=== PATIENT | female | born 1935 | race Caucasian/White ===

== ENCOUNTER 2018-04-25 13:50 | Emergency (ER) | payer OTHER, MEDICARE ==
[~2018-04-25] VITALS: Ht 167.6 cm; Wt 95.3 kg
[~2018-04-25 13:50] MED LIST: AGGRENOX 25 MG1 EACH PO; ASPIR 8181 MG PO; BYSTOLIC 5 MG5 M1 PO; CELEXA20 MG PO; COZAAR 50 MG TA50 M2 PO; FISH OIL 1,001000 M2 PO; HYDROCHLOROTHIA25 M2 PO; KEFLEX250 M1 PO; MACULAR VITAMI1 EACH PO; MICROZIDE12.5 MG PO; NORCO 5-325 TA1 EACH PO; NORVASC5 MG PO; PLAVIX 75 MG TA75 M1 PO; TAMSULOSIN HCL0.4 MG PO; ZOFRAN ODT4 MG PO; [UNRECOGNIZED DRUG - OTHER] PO
[2018-04-25 14:03] LABS: HEMATOCRIT 42.3 % (37.0-47.0); HEMOGLOBIN 14.1 gm/dL (12.0-15.0); MCH 29.8 pg (26.0-34.0); MCHC 33.4 g/dL (28.0-37.0); MCV 89.3 fL (80.0-100.0); RBC 4.74 mil/uL (4.20-5.00); RDW 14.3 % (10.5-14.5); WBC 8.9 thou/uL (4.0-11.0)
[2018-04-25 14:08] LABS: CALCIUM 10.5 mg/dL (8.5-10.1); CREATININE 0.8 mg/dL (0.6-1.0); POTASSIUM 4.3 mmol/L (3.5-5.1)
[2018-04-25 14:18] LABS: PROTIME 10.4 Seconds (9.3-11.4)
[2018-04-25 16:00] VITALS: BP 155/64
== END 2018-04-25 16:02 | disposition home or self-care (01) ==
LOC: ER 13:50
PROVIDERS: Physician Assistant
DX: S01.511A Laceration without foreign body of lip, initial encounter (principal); S01.81XA Laceration without foreign body of other part of head, initial encounter; Z86.73 Personal history of transient ischemic attack (TIA), and cerebral infarction without residual deficits; Z95.0 Presence of cardiac pacemaker; Z90.710 Acquired absence of both cervix and uterus; Z90.49 Acquired absence of other specified parts of digestive tract; W01.0XXA Fall on same level from slipping, tripping and stumbling without subsequent striking against object, initial encounter; Y93.89 Activity, other specified; Y92.89 Other specified places as the place of occurrence of the external cause; Y99.8 Other external cause status

== ENCOUNTER 2018-10-25 19:45 | Emergency (ER) | payer OTHER, MEDICARE ==
[~2018-10-25] VITALS: Ht 167.6 cm; Wt 86.2 kg
[2018-10-25 21:10] VITALS: BP 146/71
== END 2018-10-25 21:21 | disposition home or self-care (01) ==
LOC: ER 19:45 → EDBD 19:45 → ER 21:21
DX: S80.01XA Contusion of right knee, initial encounter (principal); S09.8XXA Other specified injuries of head, initial encounter; Z87.891 Personal history of nicotine dependence; Z90.710 Acquired absence of both cervix and uterus; Z90.49 Acquired absence of other specified parts of digestive tract; Z95.0 Presence of cardiac pacemaker; W18.39XA Other fall on same level, initial encounter; Y92.195 Garage of other specified residential institution as the place of occurrence of the external cause; Y93.89 Activity, other specified; Y99.8 Other external cause status

== ENCOUNTER → 2019-11-03 | Outpatient (CLI) | payer OTHER, MEDICARE | LOC: SJCVC 01:00 | PROVIDERS: ATTEND Internal Medicine | DX: Z45.018 Encounter for adjustment and management of other part of cardiac pacemaker (principal); R94.31 Abnormal electrocardiogram [ECG] [EKG]; I49.5 Sick sinus syndrome; I47.1 Supraventricular tachycardia; E78.5 Hyperlipidemia, unspecified; I10 Essential (primary) hypertension; G47.33 Obstructive sleep apnea (adult) (pediatric); E66.9 Obesity, unspecified; Z90.49 Acquired absence of other specified parts of digestive tract; Z79.899 Other long term (current) drug therapy; Z87.891 Personal history of nicotine dependence ==

== ENCOUNTER 2020-04-29 13:56 | Emergency (ER) | payer OTHER, MEDICARE ==
[~2020-04-29] VITALS: Ht 167.6 cm; Wt 102.1 kg
[2020-04-29 15:24] LABS: URINE BILIRUBIN NEGATIVE (Negative); URINE BLOOD 3+ (Negative); URINE CLARITY CLEAR; URINE COLOR YELLOW; URINE GLUCOSE-RANDOM* NEGATIVE (Negative); URINE KETONES NEGATIVE (Negative); URINE LEUKOCYTES-REFLEX 1+ (Negative); URINE NITRITE-REFLEX NEGATIVE (Negative); URINE PROTEIN (DIPSTICK) NEGATIVE (Negative); URINE SPECIFIC GRAVITY 1.025 (1.005-1.035); URINE UROBILINOGEN 0.2 E.U./dl (0.2-1.0)
[2020-04-29 15:37] LABS: ABSOLUTE NEUTROPHILS 5.1 thou/uL (1.4-8.2); BASOPHILS 0.6 % (0.0-2.0); EOSINOPHILS 0.6 % (0.0-3.0); HEMATOCRIT 40.9 % (37.0-47.0); HEMOGLOBIN 13.4 gm/dL (12.0-15.0); LYMPHOCYTES 21.2 % (24.0-44.0); MCH 29.2 pg (26.0-34.0); MCHC 32.7 g/dL (28.0-37.0); MCV 89.1 fL (80.0-100.0); MONOCYTES 9.3 % (1.0-8.0); PLATELET COUNT 174 thou/uL (150-400); POLYS 68.3 % (36.0-66.0); RBC 4.59 mil/uL (4.20-5.00); RDW 14.5 % (10.5-14.5); WBC 7.4 thou/uL (4.0-11.0)
[2020-04-29 15:49] LABS: CASTS None Seen /LPF (None Seen); CRYSTALS None Seen /LPF (None Seen); SQUAMOUS 0-3 Few /LPF (0-3); URINE RBC >20 Many /HPF (0-2); URINE WBC-REFLEX 6-15 Few /HPF (0-5)
[2020-04-29 15:50] LABS: BACTERIA-REFLEX 1-9 Few /HPF (None Seen)
[2020-04-29 15:53] LABS: ANION GAP 5 mmol/L (7-16); BUN 21 mg/dL (7-18); CALCIUM 10.4 mg/dL (8.5-10.1); CHLORIDE 106 mmol/L (98-107); CO2 30 mmol/L (21-32); GLUCOSE 102 mg/dL (74-106); POTASSIUM 4.5 mmol/L (3.5-5.1); SODIUM 141 mmol/L (136-145)
[2020-04-29 16:04] LABS: ALBUMIN 3.9 g/dL (3.4-5.0); LIPASE 161 U/L (73-393); SGOT 21 U/L (15-37); SGPT 25 U/L (30-65); TOTAL BILIRUBIN 0.6 mg/dL (0.2-1.0); TOTAL PROTEIN 6.7 g/dL (6.4-8.2); TROPONIN-I <0.06 ng/mL (<0.06)
[2020-04-29] MEDS ORDERED: NORCO 5-325 TA1 EAC2 PO (17:09)
[2020-04-29] MEDS ORDERED: ZOFRAN ODT4 MG PO (17:09)
[2020-04-29] MEDS ORDERED: SENNA-DOCUSATE1 EAC1 PO (17:09)
[2020-04-29] MEDS ORDERED: FLOMAX0.4 MG PO (17:09)
[2020-04-29 17:24] VITALS: BP 168/89
== END 2020-04-29 17:24 | disposition home or self-care (01) ==
LOC: ER 13:56
PROVIDERS: Emergency Medicine
DX: N20.2 Calculus of kidney with calculus of ureter (principal); R11.2 Nausea with vomiting, unspecified; Z90.711 Acquired absence of uterus with remaining cervical stump; Z90.49 Acquired absence of other specified parts of digestive tract; Z95.0 Presence of cardiac pacemaker; Z79.899 Other long term (current) drug therapy; Z79.82 Long term (current) use of aspirin; Z87.891 Personal history of nicotine dependence

== ENCOUNTER 2020-05-03 11:28 | Emergency (ER) | payer OTHER, MEDICARE ==
[~2020-05-03] VITALS: Ht 165.1 cm; Wt 102.1 kg
[~2020-05-03 11:28] MED LIST changes: +FLOMAX0.4 MG PO; +NORCO 5-325 TA1 EAC2 PO; +SENNA-DOCUSATE1 EAC1 PO
[2020-05-03 13:13] LABS: URINE BILIRUBIN NEGATIVE (Negative); URINE BLOOD 2+ (Negative); URINE CLARITY CLEAR; URINE COLOR YELLOW; URINE GLUCOSE-RANDOM* NEGATIVE (Negative); URINE KETONES NEGATIVE (Negative); URINE NITRITE-REFLEX NEGATIVE (Negative); URINE PROTEIN (DIPSTICK) TRACE (Negative); URINE SPECIFIC GRAVITY 1.025 (1.005-1.035); URINE UROBILINOGEN 0.2 E.U./dl (0.2-1.0)
[2020-05-03 13:15] LABS: URINE LEUKOCYTES-REFLEX 2+ (Negative)
[2020-05-03 13:21] LABS: AMP/METHAMP Negative (Negative); BARBITURATES Negative (Negative); BENZODIAZEPINES Negative (Negative); COCAINE Negative (Negative); METHADONE Negative (Negative); OPIATES POSITIVE (Negative); PCP Negative (Negative)
[2020-05-03 13:24] LABS: BACTERIA-REFLEX 1-9 Few /HPF (None Seen); CALCIUM OXALATE 0-3 Few /LPF (None Seen); CASTS None Seen /LPF (None Seen); SQUAMOUS 0-3 Few /LPF (0-3); URINE RBC 3-10 Few /HPF (0-2); URINE WBC-REFLEX 6-15 Few /HPF (0-5)
[2020-05-03 13:50] LABS: ABSOLUTE NEUTROPHILS 8.4 thou/uL (1.4-8.2); BASOPHILS 0.2 % (0.0-2.0); EOSINOPHILS 0.2 % (0.0-3.0); HEMATOCRIT 41.4 % (37.0-47.0); HEMOGLOBIN 13.4 gm/dL (12.0-15.0); LYMPHOCYTES 8.7 % (24.0-44.0); MCH 29.2 pg (26.0-34.0); MCHC 32.4 g/dL (28.0-37.0); MCV 90.1 fL (80.0-100.0); MONOCYTES 9.4 % (1.0-8.0); PLATELET COUNT 162 thou/uL (150-400); POLYS 81.5 % (36.0-66.0); RBC 4.59 mil/uL (4.20-5.00); RDW 14.4 % (10.5-14.5); WBC 10.3 thou/uL (4.0-11.0)
[2020-05-03] MEDS ORDERED: TRAMADOL 50 MG50 MG PO (13:52)
[2020-05-03] MEDS ORDERED: AUGMENTIN 875-1 EACH PO (13:52)
[2020-05-03 14:02] LABS: CALCIUM 10.4 mg/dL (8.5-10.1); CREATININE 1.4 mg/dL (0.6-1.0); POTASSIUM 4.1 mmol/L (3.5-5.1)
[2020-05-03 14:13] LABS: ALBUMIN 3.7 g/dL (3.4-5.0); MAGNESIUM 2.2 mg/dL (1.8-2.4); TOTAL BILIRUBIN 0.7 mg/dL (0.2-1.0); TOTAL PROTEIN 6.3 g/dL (6.4-8.2); TROPONIN-I 0.21 ng/mL (<0.06)
--- NOTE | 2020-05-03 14:42 | EKG ---
[facility] [place] [address] ELECTROCARDIOGRAM REPORT Name: HOLLIE BLANKENSHIP Room #: REG [facility]#: [id number] Admission: 05/03/20 Attend Phys: Discharge: Date of : 35 Report #: [id number] THIS REPORT FOR: cc: Emile Mosley MD, Christopher B. MD Santiago, Patrick MD [facility] ~ THIS REPORT FOR: //name// [facility] ED Test Date: 2020-05-03 Test Time: 13:01:43 Pat Name: HOLLIE BLANKENSHIP Department: Room: Gender: F Rf Design Engineer: [email or web address] : 1935 Requested By: Clark Almendarez Order Number: [id number] MD: Jim Burkett Measurements Intervals [place] Rate: 68 P: 44 MS: 140 QRS: 19 QRSD: 120 T: -7 QT: 398 QTc: 424 Interpretive Statements Sinus rhythm Atrial premature complex Nonspecific intraventricular conduction delay Borderline T abnormalities, inferior leads Compared to ECG 09/20/2007 09:56:49 Atrial premature complex(es) now present Intraventricular conduction delay now present T-wave abnormality now present Electronically Signed On 05-03-2020 14:42:20 BRAND ENGINEER by Jim Burkett [email or web address] <ELECTRONICALLY SIGNED> By: Jim Burkett MD, FACC 05/03/20 1442 1301 1301 Jim Burkett MD, FACC /EPI
[2020-05-03 20:22] VITALS: BP 161/76
== END 2020-05-03 20:22 | disposition short-term general hospital (02) ==
LOC: ER 11:28
PROVIDERS: Emergency Medicine
DX: N17.9 Acute kidney failure, unspecified (principal); N39.0 Urinary tract infection, site not specified; N13.2 Hydronephrosis with renal and ureteral calculous obstruction; R77.8 Other specified abnormalities of plasma proteins; R41.82 Altered mental status, unspecified; T50.905A Adverse effect of unspecified drugs, medicaments and biological substances, initial encounter; Z90.710 Acquired absence of both cervix and uterus; Z90.49 Acquired absence of other specified parts of digestive tract; Z95.0 Presence of cardiac pacemaker; Z79.899 Other long term (current) drug therapy; Z79.01 Long term (current) use of anticoagulants; Z79.82 Long term (current) use of aspirin; Z87.891 Personal history of nicotine dependence; Y92.89 Other specified places as the place of occurrence of the external cause

== ENCOUNTER 2020-05-26 18:35 | Inpatient (IN) | payer OTHER, MEDICARE ==
[~2020-05-26] VITALS: Ht 165.1 cm; Wt 97.6 kg
--- NOTE | ~2020-05-26 | HC ---
[facility] [place] [address] CONSULTATION Name: HOLLIE BLANKENSHIP Room #: 218-P ADM IN M.R.#: [id number] Admission: 05/26/20 Attend Phys: Del Tan MD Discharge: Date of : 35 Report #: [id number] THIS REPORT FOR: cc: Emile Mosley MD, Christopher B. MD Khosla, Parveen K. MD ~ DATE OF SERVICE: 05/27/2020 HISTORY OF PRESENT ILLNESS: This is an 85-year-old female patient who was evaluated by me for an episode of speech difficulty. The history is confusing, but when I get the history in detail, it would appear that the patient is having at least some symptoms for several months. She thinks it may have become worse. She thinks her speech becomes dysarthric. There are no other signs for myasthenia gravis like ptosis or diplopia. She is not a very good historian. She does not believe she has any swallowing difficulty or any breathing difficulty. When she came in, the history she has given was that she probably had an episode of speech difficulty and slurred speech, but further history looks like it is a chronic problem. REVIEW OF SYSTEMS: Positive for hysterectomy, appendectomy, question of stroke in the past, cardiac cath, history of phlebitis, prior history of smoking. She also had multiple MRIs of the brain in the past. I am not sure why she had that and she does not remember, but the record indicates that at one time she used to have headache. She also has what looks like a nodule on the chest and she is being evaluated by Pulmonology. That was a relevant 14-point review of system. PAST MEDICAL HISTORY: Positive for speech difficulty, is not clear how long it is going on. Apparently, she has a pacemaker. She does not know whether it is compatible with MRI or not. FAMILY HISTORY: Unremarkable. SOCIAL HISTORY: She has a history of smoking. PHYSICAL EXAMINATION: Her higher function is difficult because she is very hard of hearing, but she can tell me what month it is. She could not tell me the exact date. Speech looks intact. Cranial nerve examination II-XII looks unremarkable. The speech still looks somewhat slurred. Her neuromuscular examinations appear to be symmetrical. I could not look at the fundus. There is no meningeal sign. There is no carotid bruit. Blood pressure is 118/53, respirations 18, pulse is 82, temperature is 98.7. LABORATORY DATA: White count is 15.7. She had a CT angiogram done and she got 1000 fluid. It showed mild disease, but nothing which needs intervention. [address] [address] CONSULTATION Name: HOLLIE BLANKENSHIP Room #: 218- ADM IN M.R.#: [id number] Admission: 05/26/20 Attend Phys: Del Tan MD Discharge: Date of : 35 Report #: [id number] IMPRESSION: It is possible there are transient ischemic attacks, but she looks like she is giving a history of chronic speech difficulty. Because of that, I think we need to work her up further. First thing I like to do is exclude the myasthenia gravis. I will check the vital capacity and if it is low, then pricer who is already on the case can address that. She is already on aspirin and Plavix. There is limited thing you can do more about that. We will see what the lipid profile shows. She can follow up as an outpatient, we can do some workup starting with sed rate, but presently I think she needs a workup for malignancy because if she has a malignancy, sed rate may not be very accurate. I discussed all of it with the patient and I spent more than 50 minutes of time taking care of this patient and majority of that time was spent counseling and coordinating. Dr. Mart will follow up this patient with you from tomorrow. By: 1842 0014 Usama Webster MD /nt
--- NOTE | ~2020-05-26 | EMS ---
[address] [address] EMS Patient Care Report Name: HOLLIE BLANKENSHIP Room #: REG [facility]#: [id number] Admission: 05/26/20 Attend Phys: Discharge: Date of : 35 Report #: [id number] THIS REPORT FOR: //name// Report Transmitted: 05/26/2020 18:43 EMS Care Summary [facility] MED-ACT Incident [id number] @ 05/26/2020 17:42 Incident Location [address] [place] [address] Patient HOLLIE BLANKENSHIP Female, 85 Years 1935 Patient Address [address] [place] [address] Patient History TIA,Kidney Stone, Patient Allergies No known allergies, Patient Medications Aspirin, Irbesartan, Amlodipine, Clopidogrel, Losartan, Tamsulosin, Bystolic, Chief Complaint "Her speech is slurred" Disposition Transported No Lights/[place] Dispatch Reason Sick Person Transported To [facility] Narrative EMS dispatched to a local residence for a female patient. Upon arrival, EMS is greeted at the front door by the patient's son and guided to the patient. She's sitting in her recliner, appears in no distress and is able to communicate with EMS. The patient's son relays that yesterday she got a stent removed from her [facility] [address] [place] [address] EMS Patient Care Report Name: HOLLIE BLANKENSHIP Room #: REG [facility]#: [id number] Admission: 05/26/20 Attend Phys: Discharge: Date of : 35 Report #: [id number] kidney. In addition, he beings to tell EMS that "about two hours ago my sister called and noticed her slurred speech". At that time, she called him and told him to come check on their mom. Upon his arrival, his mother relayed that she had been on the floor most of the night because she wasn't wearing her life alert. The patient's son relays he immediately knew "she's not right" and contacted 911. The patient relays that the fall was minor and it was more like a "slip out of a chair". However, she does notice her slurred speech. When questioned more about this she states "I'm not really sure when it all started". Around that time, the patient's daughter showed up and relays that she left her mothers house about 1700 and didn't notice any slurring at all. Initial assessment is performed on pt with mask placement, vitals, bilateral blood pressures, EKG, stroke assessment. The patient is able to stand and ambulate with minor assistance to cot where secured. The patient is moved to MICU where secondary assessment is performed on pt with vitals, IV access, 12lead, early notification to [facility] for stroke. The family is also updated on scene to let them know the situation. They are more than agreeable that EMS "do what you need to do" and relay they are happy with the hospital choice of [facility]. En route the patient's condition does not change, slurred speech is still apparent. However, no other stroke symptoms are found. In addition, during a physical assessment a small bruise is noted to the patient's breast. She relays it's from the fall. Report is given to RN and . Care is transferred without incident. Initial Vitals @18:18P: 75,R: 16,BP: 133/92,Pain: 0/10,GCS: 15,SpO2: 97,Revised Trauma: 12, @17:54P: 81,R: 16,BP: 129/83,GCS: 15,SpO2: 99,Revised Trauma: 12,NV Suspected: false @17:52P: 82,R: 16,BP: 158/81,Pain: 0/10,GCS: 15,Temp: 99.7F,Glucose: 110,SpO2: 98,Revised Trauma: 12,NV Suspected: false Assessments @18:15MENTAL:No Abnormalities,SKIN:No Abnormalities,HEENT:LUNG SOUNDS:General: No Abnormalities,Left Upper: No Abnormalities,Right Upper: No Abnormalities,Left Lower: No Abnormalities,Right Lower: No Abnormalities,ABDOMEN:General: No Abnormalities,Left Upper: No Abnormalities,Right Upper: No Abnormalities,Left Lower: No Abnormalities,Right Lower: No Abnormalities,PELVIS//GI:No Abnormalities,EXTREMITIES:Left Arm: No Abnormalities,Right Arm: No Abnormalities,Left Leg: No Abnormalities,Right Leg: No Abnormalities,PULSE:NEURO:Slurred Speech,@18:06 [facility] [address] [place] [address] EMS Patient Care Report Name: HOLLIE BLANKENSHIP Room #: REG ER Kaden#: [id number] Admission: 05/26/20 Attend Phys: Discharge: Date of : 35 Report #: [id number] Impression Stroke Procedures @17:52Surgical Mask on PatientResponse: Unchanged@18:1812-Lead ECGResponse: UnchangedSucceeded@18:19Saline Lock 0cc (22 ga) Site: Hand-RightResponse: UnchangedFailed@18:20Normal Saline (.9% NaCl) 10cc (20 ga) Site: Hand-LeftResponse: UnchangedSucceeded Timeline 17:40,Call Received 17:40,Psap Call 17:42,Dispatched 17:42,En Route 17:49,On Scene 17:51,At Patient 17:52,Surgical Mask on Patient,Response: Unchanged 17:52,BP: 158/81 M,PULSE: 82,RR: 16 R,SPO2: 98 Ox,ETCO2: ,B,PAIN: 0,GCS: 15, 17:54,BP: 129/83 M,PULSE: 81,RR: 16 R,SPO2: 99 Ox,ETCO2: ,BG: ,PAIN: ,GCS: 15, 18:18,12-Lead ECG,Response: UnchangedSucceeded, 18:18,BP: 133/92 M,PULSE: 75,RR: 16 R,SPO2: 97 Ox,ETCO2: ,BG: ,PAIN: 0,GCS: 15, 18:19,Saline Lock 0cc 22 ga Site: Hand-Right,Response: UnchangedFailed, 18:20,Normal Saline (.9% NaCl) 10cc 20 ga Site: Hand-Left,Response: UnchangedSucceeded, 18:20,Depart Scene 18:29,At Destination 19:00,Call Closed Disclaimer v1.1 Copyright 2020 [employer] This EMS Care Summary contains data elements from the applicable legal record (which may be displayed differently). It is designed to provide pertinent information for the following purposes: continuity of care, clinical quality, and state data reporting. The complete legal record is available to ED staff and administrators of the receiving hospital in [employer] Patient Tracker. All data is provided "as is."
[~2020-05-26 18:35] MED LIST changes: +AUGMENTIN 875-1 EACH PO; +TRAMADOL 50 MG50 MG PO
[2020-05-26 18:36] VITALS: BP 136/67
[2020-05-26 18:54] LABS: ABSOLUTE NEUTROPHILS 13.3 thou/uL (1.4-8.2); BASOPHILS 0.2 % (0.0-2.0); EOSINOPHILS 0.2 % (0.0-3.0); HEMATOCRIT 34.7 % (37.0-47.0); HEMOGLOBIN 11.3 gm/dL (12.0-15.0); LYMPHOCYTES 6.6 % (24.0-44.0); MCH 28.6 pg (26.0-34.0); MCHC 32.5 g/dL (28.0-37.0); MONOCYTES 8.5 % (1.0-8.0); PLATELET COUNT 139 thou/uL (150-400); POLYS 84.5 % (36.0-66.0); RBC 3.95 mil/uL (4.20-5.00); RDW 14.1 % (10.5-14.5); WBC 15.7 thou/uL (4.0-11.0)
[2020-05-26 19:08] LABS: ANION GAP 8 mmol/L (7-16); BUN 26 mg/dL (7-18); CALCIUM 10.8 mg/dL (8.5-10.1); CHLORIDE 103 mmol/L (98-107); CO2 28 mmol/L (21-32); GLUCOSE 127 mg/dL (74-106); POTASSIUM 3.9 mmol/L (3.5-5.1); SODIUM 139 mmol/L (136-145)
[2020-05-26 19:13] LABS: ALBUMIN 3.3 g/dL (3.4-5.0); SGOT 21 U/L (15-37); SGPT 28 U/L (30-65); TOTAL BILIRUBIN 1.5 mg/dL (0.2-1.0); TOTAL PROTEIN 5.9 g/dL (6.4-8.2); TROPONIN-I <0.06 ng/mL (<0.06)
[2020-05-26 19:20] LABS: INR 1.1; PROTIME 11.2 Seconds (9.3-11.4)
[2020-05-26 20:46] LABS: URINE BILIRUBIN NEGATIVE (Negative); URINE BLOOD 3+ (Negative); URINE CLARITY SL CLOUDY; URINE COLOR YELLOW; URINE GLUCOSE-RANDOM* NEGATIVE (Negative); URINE KETONES NEGATIVE (Negative); URINE PROTEIN (DIPSTICK) 2+ (Negative); URINE SPECIFIC GRAVITY 1.025 (1.005-1.035); URINE UROBILINOGEN 0.2 E.U./dl (0.2-1.0)
[2020-05-26 20:49] LABS: URINE LEUKOCYTES-REFLEX 2+ (Negative); URINE NITRITE-REFLEX POSITIVE (Negative)
[2020-05-26 20:55] LABS: BACTERIA-REFLEX >30 Many /HPF (None Seen); CASTS None Seen /LPF (None Seen); CRYSTALS None Seen /LPF (None Seen); SQUAMOUS 0-3 Few /LPF (0-3); URINE RBC 3-10 Few /HPF (0-2); URINE WBC-REFLEX >25 Many /HPF (0-5)
--- NOTE | 2020-05-26 21:52 | NUR ---
PT'S HEBER MANZO # [phone]
[2020-05-26 22:07] VITALS: BP 144/79
[2020-05-26 23:21] VITALS: BP 150/76
[2020-05-27] VITALS: BP 122/52
[2020-05-27 04:15] VITALS: BP 117/54
--- NOTE | 2020-05-27 04:59 | NUR ---
REPORT RECEIVED FROM ED RN. PATIENT ARRIVES AT THE UNIT AT APPROX 0000HRS. PATIENT IS A/O X4. NEURO INTACT. AFEBRILE.VSS. DENIES SOA. REMAINS ON RA. HARD OF HEARING. STATES THAT SHE LEFT HER GLASSES, HEARING AID, PARTIAL DENTURES AT HOME. ATTACHED TO THE TELE. DENIES NEEDS. WILL MONITOR.
[2020-05-27 08:00] VITALS: BP 134/72
--- NOTE | 2020-05-27 08:51 | NUR ---
UP THIS AM, ALERT AND TALKING WELL WITH STAFF. SWALLOWING NO COUGH, NO ISSUES OBSERVED WITH SPEECH AT BEDSIDE. FOGOT WAHT DAY IT WAS BUT OTHERWISE ORIENTS VERY QUICKLY AND APPROPRIATE. DISCUSSED LIVING ARRANGEMENTS-STATED IS IN EXTENDED CARE FACILITY.
--- NOTE | 2020-05-27 11:51 | 2DMMODE ---
[facility] [place] [address] 2 D/M-MODE ECHOCARDIOGRAM Name: HOLLIE BLANKENSHIP Room #: 218-P ADM IN M.R.#: [id number] Admission: 05/26/20 Attend Phys: Del Tan MD Discharge: Date of : 35 Report #: [id number] THIS REPORT FOR: cc: Emile Mosley MD, Christopher B. MD Lammoglia, Francisco J. MD ~ APPROVED REPORT Study performed: 05/27/2020 10:26:38 EXAM: Comprehensive 2D, Doppler, and color-flow Echocardiogram Patient Location: Bedside Room #: 218 Status: routine BSA: 2.02 HR: 83 bpm BP: 134/72 mmHg Rhythm: NSR Other Information Study Quality: Adequate Indications TIA. Echo Enhancing Agent Indication: Rule out Shunt Agent(s) / Amount(s) Used: Agitated Saline 7 cc 2D Dimensions RVDd: 45.81 mm IVSd: 10.38 (7-11mm) LVOT Diam: 19.75 (18-24mm) LVDd: 49.86 mm PWd: 8.45 (7-11mm) Ascending Ao: 28.48 (22-36mm) LVDs: 36.33 (25-40mm) Aortic Root: 28.43 mm Volumes Left Atrial Volume (Systole) Single Plane 4CH: 49.49 mL Single Plane 2CH: 94.11 mL LA ESV Index: 36.60 mL/m2 Aortic Valve AoV Peak Keyon.: 2.50 m/s [facility] [address] [place] [address] 2 D/M-MODE ECHOCARDIOGRAM Name: HOLLIE BLANKENSHIP Room #: 218-P [facility] IN .R.#: [id number] Admission: 05/26/20 Attend Phys: Del Tan MD Discharge: Date of : 35 Report #: [id number] AO Peak Gr.: 25.03 mmHg LVOT Max P.53 mmHg AO Mean Gr.: 13.83 mmHg AO V2 Mean: 1.76 m/s LVOT Max V: 1.18 m/s AO V2 VTI: 47.80 cm XOCHILT Vmax: 1.44 cm2 Mitral Valve E/A Ratio: 2.4 MV Decel. Time: 177.85 ms MV E Max Keyon.: 1.09 m/s MV A Keyon.: 0.46 m/s MV PHT: 51.58 ms IVRT: 62.28 ms Pulmonary Valve PV Peak Keyon.: 0.79 m/s PV Peak Gr.: 2.52 mmHg Pulmonary Vein P Vein S: 0.42 m/s P Vein A: 0.25 m/s P Vein D: 0.33 m/s P Vein A Dur.: 175.3 msec P Vein S/D Ratio: 1.27 Tricuspid Valve TR Peak Keyon.: 3.23 m/s RAP Estimate: 15.00 mmHg TR Peak Gr.: 41.82 mmHg PA Pressure: 56.80 mmHg Left Ventricle The left ventricle is normal size. There is normal LV segmental wall motion. Mild concentric left ventricular hypertrophy. The left ventricular systolic function is normal. LVEF is 65%. Severe diastolic dysfunction is present (restrictive filling). Right Ventricle Right ventricle is dilated. The right ventricular systolic function is normal. Pacemaker lead is present in the right ventricle. Atria Left atrium is mildly dilated. No shunting noted with contrast bubble injection. Right atrium is moderately dilated. Aortic Valve Aortic valve is moderately calcified. No aortic regurgitation is present. There is mild valvular aortic stenosis. Calculated aortic valve area is 1.4 cm2 with maximum pressure gradient of 25 mmHg and mean pressure gradient of [address] [address] 2 D/M-MODE ECHOCARDIOGRAM Name: HOLLIE BLANKENSHIP Room #: 218-P [facility] IN .R.#: [id number] Admission: 05/26/20 Attend Phys: Del Tan MD Discharge: Date of : 35 Report #: [id number] Mitral Valve The mitral valve is normal in structure. Mild mitral regurgitation. No evidence of mitral valve stenosis. Tricuspid Valve The tricuspid valve is normal in structure. Moderate tricuspid regurgitation. Estimated PAP 55mmHg. Pulmonic Valve The pulmonary valve is normal in structure. Trace pulmonic regurgitation. Great Vessels The aortic root is normal in size. The ascending aorta is normal in size. IVC is dilated and collapses <50% with inspiration. Pericardium There is no pericardial effusion. <Conclusion> The left ventricle is normal size. LVEF is 65%. Right ventricle is dilated. The right ventricular systolic function is normal. Pacemaker lead is present in the right ventricle. Left atrium is mildly dilated. Right atrium is moderately dilated. No shunting noted with contrast bubble injection. Aortic valve is moderately calcified. There is mild valvular aortic stenosis. Calculated aortic valve area is 1.4 cm2 with maximum pressure gradient of 25 mmHg and mean pressure gradient of 14 mmHg. The mitral valve is normal in structure. Mild mitral regurgitation. The tricuspid valve is normal in structure. Moderate tricuspid regurgitation. Estimated PAP 55mmHg. The pulmonary valve is normal in structure. Trace pulmonic regurgitation. There is no pericardial effusion. <ELECTRONICALLY SIGNED> By: Ranjit Cassidy MD 05/27/20 1151 1151 1151 Ranjit Cassidy MD /INF
[2020-05-27 12:10] VITALS: BP 118/53
--- NOTE | 2020-05-27 16:32 | NUR ---
Case opened to follow for dc planning. Press Operator Meat visited with the pt and her dtr Donya at bedside. The pt is A&ox3, a litte [place] and some mumbling of words noted. Pt admitted via the ER for r/o CVA and UTI. The pt lives in her ranch style home with two steps to enter. She lives alone as her spouse is a ltc resident at [facility] for a number of months now. The pt notes she had a kidney stone a few weeks ago and had a stent placed at [facility]. She had been receiving hh per Yaneli for RN,PT and OT. She was at [facility] a few days ago and had the stent removed as an outpt. She has 6 children/5 live locally and take turns staying with her and bringing meals over. She does have a lifealert but was not wearing it when she fell the other night. Pt's dtr Donya indicates that she is the designated visitor, but dtr Winnie and son Taj are her dpoa for health care if needed. They all communicate daily and update each other. Donya reports that they have a gate guard/friend that comes in every two weeks and are familiar with private duty, visiting angels as they had them for their father. The kids are concerned that the pt has had contined weakness over the past 3 weeks and that HH therapy is not enough to help her rebuild her strength. They are interested in 5N acute rehab as a first choice and SNF at [facility] or [facility] of OP as a plan B. After further discussion, the pt is agreeable. Referral called to Twyla in admissions at [facility]. Case discussed with 5N liason. Will f/u with all parties tomorrow to determine which dc plan is optimal. Pulm consult pending d/t lung mass. This may be a new dx as well. Will follow along.
--- NOTE | 2020-05-27 18:21 | NUR ---
13:00 CT OF CHEST ORDERED FOR MASS R/O. FLUSHED BOTH IV'S AND PATENT FOR CONTRAST DYE. BRIDGETT CONTINUES TO BE SLIGHTLY "JUMBLED " AT TIMES OTHERWISE SHE ORIENTS QUICKLY AND APPROPRIATE.
--- NOTE | 2020-05-27 18:23 | NUR ---
RESTING WITH EYES CLOSED , AROUSES AND IS APPROPRIATE . TOUCHES NOSSE WELL, STEADY GAIT TODAY WITH STANBY ASSIST X1.
--- NOTE | 2020-05-27 18:43 | NUR ---
WE ARE NOW TESTING HER VITAL CAPACITY EVERY 8 HOURS PER RT AND TO CALL IF IT FALLS BELOW 2L PER MD ORDER WILL PASS THIS ALONG IN REPORT.
[2020-05-27 19:41] VITALS: BP 126/67
[2020-05-28 01:06] LABS: GLYCOHEMOGLOBIN (HGB A1C) 5.6 % (4.8-5.6)
[2020-05-28 04:50] VITALS: BP 117/42
[2020-05-28 07:50] VITALS: BP 137/60
--- NOTE | 2020-05-28 08:00 | NUR ---
PATIENT CARES WAS ASSUMED AT SHIFT CHANGE.PATIENT WAS ASSESSED AND MEDS WERE PASSED. PATIENT HAD NO REQUEST AND THIS SHIFT WAS UNEVENTFUL. THE BED IS IN A LOW AND LOCKED POSITION
--- NOTE | 2020-05-28 09:54 | NUR ---
SPOKE TO PT.S FAMILY THIS AM AND THEY WERE WANTING TO DICUSS HER POC EXPLAINED THAT WE ARE STILL TRYING OT ESTABLISH A GOOD HANDLE ON HER BREATHING ABILLITIES AND VOLUMES AND I SPOKE WITH HER HSOPITALIST ABOUT THIS WELL. HER SATURATIONS WITH EXERTION ARE RUNNING 84% AND REST 92% ON ROOM AIR, WILL PASS THIS ALONG TODAY.
--- NOTE | 2020-05-28 10:50 | NUR ---
FAXED REFERRAL TO [facility] SPOKE WITH DAVID IN ADM THEY CAN ACCEPT. FAXED REFERRAL TO [facility] SPOKE WITH SHARLA IN ADM THEY WILL NOT HAVE A BED AVAILABLE TO SUNDAY. DP TO FOLLOW.
--- NOTE | 2020-05-28 11:39 | NUR ---
SHARED VC RESULTS WITH DR. DAVIS ON ROUNDS THIS AM. HE SAID THEY WILL WORK UP HER LUNG NODULE ON AN OUTPATIENT BASIS.
[2020-05-28] MEDS ORDERED: COZAAR 50 MG TA50 M1 PO (12:02)
[2020-05-28 13:00] LABS: CHOLESTEROL 96 mg/dL (<200); HDL CHOLESTEROL 30 mg/dL (>40); LDL CHOLESTEROL 47 mg/dL (<100); TC:HDL 3.2 Ratio (Not establshd); TRIGLYCERIDE 98 mg/dL (<150); VLDL 20 mg/dL (<40)
--- NOTE | 2020-05-28 17:13 | NUR ---
Pt accept for 5N acute rehab stay as well as accepted by [facility] for snf if needed. Family prefer 5N with goal of returning home. Pulm workup as an outpt. Pt needing 2liters of o2, Covid pending then dc to rehab. Dtr at bedside.
--- NOTE | 2020-05-28 17:59 | NUR ---
PATIENT IS A CANDIDATE FOR ACUTE REHAB. POTENTIAL ADMISSION TO 05/28/20 IF COVID TESTING IS NEGATIVE. TEST RESULTS TO COME IN 05/28 AROUND 8:00 PM. 5N STAFF AND CCU STAFF ARE AWARE OF POSSIBLE ADMISSION THIS DATE. THANK YOU FOR THIS REFERRAL.
[2020-05-28 20:00] VITALS: BP 139/78
--- NOTE | 2020-06-03 11:22 | EKG ---
[facility] [place] [address] ELECTROCARDIOGRAM REPORT Name: HOLLIE BLANKENSHIP Room #: 218-P [facility] IN M.R.#: [id number] Admission: 05/26/20 Attend Phys: Del Tan MD Discharge: 05/28/20 Date of : 35 Report #: [id number] THIS REPORT FOR: cc: Emile Mosley MD, Christopher B. MD Santiago, Patrick MD [facility] ~ THIS REPORT FOR: //name// [facility] ED Test Date: 2020-05-26 Test Time: 18:50:26 Pat Name: HOLLIE BLANKENSHIP Department: Room: 218 Gender: F Mixer Foam Rubber: destiny : 1935 Requested By: Michael Ferrell Order Number: [id number] MD: Jim Burkett Measurements Intervals [place] Rate: 73 P: -12 ME: 161 QRS: 35 QRSD: 93 T: -35 QT: 371 QTc: 409 Interpretive Statements Sinus rhythm Atrial premature complex Borderline repolarization abnormality Compared to ECG 05/03/2020 13:01:43 Intraventricular conduction delay no longer present T-wave abnormality no longer present Electronically Signed On 05-27-2020 7:26:37 URBAN REDEVELOPMENT SPECIALIST by Jim Burkett [email or web address] <ELECTRONICALLY SIGNED> By: Jim Burkett MD, FACC 05/27/20 07 49 49 Jim Burkett MD, FACC /EPI
== END 2020-05-28 22:37 | DRG 91 ==
LOC: ER 18:35 → EROBS 20:27 → 2N 20:27
PROVIDERS: Emergency Medicine; Nurse Practitioner Family; Psychiatry & Neurology Neuromuscular Medicine; ADMIT Hospitalist; ATTEND Hospitalist
DX: G92 Toxic encephalopathy (principal); J96.90 Respiratory failure, unspecified, unspecified whether with hypoxia or hypercapnia; N12 Tubulo-interstitial nephritis, not specified as acute or chronic; R63.4 Abnormal weight loss; R91.8 Other nonspecific abnormal finding of lung field; I49.5 Sick sinus syndrome; E66.9 Obesity, unspecified; F32.9 Major depressive disorder, single episode, unspecified; R91.1 Solitary pulmonary nodule; Z20.828 Contact with and (suspected) exposure to other viral communicable diseases; Z90.710 Acquired absence of both cervix and uterus; Z90.49 Acquired absence of other specified parts of digestive tract; Z95.0 Presence of cardiac pacemaker; Z98.42 Cataract extraction status, left eye; Z98.41 Cataract extraction status, right eye; Z87.891 Personal history of nicotine dependence; Z68.35 Body mass index [BMI] 35.0-35.9, adult; Z87.442 Personal history of urinary calculi
CPT/HCPCS: 10081

== ENCOUNTER 2020-05-28 13:22 | Inpatient (IN) | payer OTHER, MEDICARE ==
[~2020-05-28] VITALS: Ht 165.1 cm; Wt 94.3 kg
--- NOTE | ~2020-05-28 | PLAN ---
[facility] [place] [address] REHAB UNIT PLAN OF CARE Name: HOLLIE BLANKENSHIP Room #: 503-P ADM IN M.R.#: [id number] Admission: 05/28/20 Attend Phys: Dayne Magana MD Discharge: Date of : 35 Report #: [id number] THIS REPORT FOR: cc: Emile Mosley MD, Christopher B. MD Smithson,Dayne Morejon MD ~ DATE OF SERVICE: 05/31/2020 PROGRESS NOTE/OVERALL PLAN OF CARE SUBJECTIVE: The patient is seen today. She is in no distress. Temperature 98.1, pulse 72, respirations 18, blood pressure 155/74. She is alert and pleasant. She is in no distress. Speech therapy is working with her and she is on a nectar thickened liquid diet. Physical therapy, she is standby assistance with basic transfers and is ambulating 200+ feet with a front-wheeled walker with contact guard assistance. In occupational therapy, lower body dressing is moderate assistance. Neurology has seen her and they recommended that she see a neurologist or PCP as an outpatient and have a lab test for myasthenia gravis. Slurred speech is noted to have resolved. ASSESSMENT: 1. Toxic metabolic encephalopathy. 2. Possible transient ischemic attack, possible myasthenia gravis. Neurology recommendations for myasthenia gravis test as an outpatient. 3. Urinary tract infection with pyelonephritis. 4. Left lung nodule. 5. Recent kidney stone with stent removed on 05/25/2020 at [facility] and recent lithotripsy. 6. History of sick sinus syndrome with permanent pacemaker. PLAN: The overall plan of care is based on the preadmission screen and information garnered from therapy assessments. 1. Estimated length of stay is of least 7-10 days, pending progress. 2. Medical prognosis is reasonably good. 3. Anticipated interventions includes the interdisciplinary acute inpatient rehabilitation program. 4. Anticipated functional outcomes would be for the patient to become modified independent with transfers, mobility, ADLs and to improve as far as swallowing and also regarding cognitive issues. Speech therapy will be further assessing in that regard. 5. Anticipated functional outcomes would be for her to return back to the home setting at a walker level. 6. Discharge destination is as above. She was [place] [address] REHAB UNIT PLAN OF CARE Name: HOLLIE BLANKENSHIP Room #: 503-P [facility] IN .R.#: [id number] Admission: 05/28/20 Attend Phys: Dayne Magana MD Discharge: Date of : 35 Report #: [id number] does have children who are in town and used a front wheeled walker premorbidly. 7. Expected therapy by discipline includes PT, OT and speech 1 hour per day each five days a week throughout the duration of the acute inpatient rehabilitation stay. The patient's prognosis for significant practical improvement within a reasonable period of time appears good. Given the patient's complex medical condition and risk of further medical complications, rehabilitation services could not be safely provided at a lower level of care such as a prison facility. By: [id number] Dayne Magana MD /nt
[~2020-05-28 13:22] MED LIST changes: +COZAAR 50 MG TA50 M1 PO
[2020-05-28 23:00] VITALS: BP 149/70
--- NOTE | 2020-05-29 01:12 | NUR ---
PT ARRIVED ON THE UNIT FROM [facility] THIS SHIFT. A&OX4 ADMISSION DONE AND PT ORIENTED TO THE UNIT. EVENING MEDS GIVEN AND SCD'S PLACED ON BLE. PT ON RA SATS 95%. PO FLUID GIVEN. IV INTACT IN RT A/C AND SL. FALL PREC IN PLACE AND CALL LIGHT AT REACH WILL CONT TO MONITOR.
[2020-05-29 05:22] LABS: HEMATOCRIT 34.5 % (37.0-47.0); HEMOGLOBIN 11.1 gm/dL (12.0-15.0); MCH 28.2 pg (26.0-34.0); MCHC 32.1 g/dL (28.0-37.0); MCV 87.8 fL (80.0-100.0); RBC 3.93 mil/uL (4.20-5.00); RDW 14.7 % (10.5-14.5); WBC 5.5 thou/uL (4.0-11.0)
[2020-05-29 05:38] LABS: CALCIUM 10.6 mg/dL (8.5-10.1); CREATININE 0.7 mg/dL (0.6-1.0); POTASSIUM 3.9 mmol/L (3.5-5.1)
[2020-05-29 07:20] VITALS: BP 139/67
--- NOTE | 2020-05-29 13:41 | NUR ---
ASSUMED CARE OF PT AT 0700. PT IS A&OX4 AND VITAL SIGNS ARE STABLE. PT DENIES PAIN AND PARTICIPATED IN SCHEDULED THERAPIES. IV TO THE RIGHT AC REMOVED. PT PLACED ON NECTAR THICK LIQUIDS BY ST WITH PLANS FOR SWALLOW STUDY. DAUGHTER AT THE BEDSIDE. FALL PRECAUTIONS IN PLACE AND NURSING WILL CONTINUE TO MONITOR.
[2020-05-29 20:00] VITALS: BP 152/80
--- NOTE | 2020-05-29 23:02 | NUR ---
PT ASSESSMENT COMPLETED AND VSS. MEDS GIVEN ORDERED AND WELL TOLERATED. UP TO THE BATHROOM SEVERAL TIMES. PT UNSTEADY TWO TIMES SO FAR DURING THE NIGHT. UP WITH ASST/GAIT/WALKER. SLEEPING WELL. FALL PRECUATIONS IN PLACE. WILL CONTINUE TO MONITOR FREQUENTLY.
[2020-05-30 07:00] VITALS: BP 148/76
--- NOTE | 2020-05-30 08:28 | NUR ---
ASSUMED CARE AT 0700. PATIENT IS ALERT AND ORIENTEDX4. PATIENT HAS RIGHT SIDED WEAKNESS. PATIENT IS UP WITH GAIT BELT AND WALKER. PATIENT IS UP IN THE CHAIR FOR MEALS. PATIENT HAS MILD SLURRED SPEECH, WITH SLIGHT FACIAL DROOP. LUNGS ARE CLEAR AND DEMINISHED. ABD IS SOFT WITH BSX4. PATIENT CONTINUES ON ABT FOR UTI. FALL AND SAFETY PROTOCOLS IN PLACE. DENIES PAIN. CONTINUES TO PROGRESS SLOWLY TOWARDS D/C GOALS. WILL CONTINUE TO MONITER.
[2020-05-30 20:00] VITALS: BP 155/74
--- NOTE | 2020-05-30 21:36 | NUR ---
ASSUMED CARE OF PT AT 1915. PT IS A&OX4. IS ON ROOM AIR. DENIES PAIN. IS STABLE. HAS BILAT LE EDEMA. ELEVATED IS UP WITH 1 ASSIST, GB, WALKER. HAS RIGHT SIDED WEAKNESS. FALL PRECAUTIONS & HOURLY ROUNDING CONTNUED THIS SHIFT. LABS & VITALS REVIEWED. PT IS CURRENTLY SLEEPING. CALL LIGHT WITHIN REACH. PT IS CONTINENT TO B&B. IS STILLAGUAMISH. TAKES MEDS WHOLE IN APPLE SAUCE. PT ASKED WHY? THIS NURSE EXPLAINED THAT APPLESAUCE IS USED WHEN PT HAVE A DIFFICULT TIME SWALLOWING MEDS. PT WAS OK CONTINUING TO TAKE THEM THIS WAY. WILL CONTINUE TO MONITOR.
[2020-05-31 07:00] VITALS: BP 128/56
[2020-05-31] MEDS ORDERED: SERTRALINE HCL50 MG PO (08:12)
--- NOTE | 2020-05-31 13:33 | NUR ---
ASSUMED CARES AT 0700. PT AWAKE, ALERT AND ORIENTED*4. DENIES PAIN. VITALS REMAIN STABLE. CONTINUES TO HAVE BLE EDEMA, EXTREMITIES ELEVATED. PT PARTICIPATED WELL IN THERAPY AND CONTINUES TO PROGRESS TOWARDS DC GOALS. Q1H VISUAL CHECKS. CALL LIGHT WITHIN REACH. FALL PRECAUTIONS IN PLACE
--- NOTE | 2020-05-31 14:56 | NUR ---
chart review. maya visited with derian at bedside, cm cont to wear face mask and shield. intro to cm, team meeting and dcp. she stated " ok thank you "/derian. she is off oxygen and on ra. she lives at home alone. her spouse lives at r of [facility]. there is 2 steps to enter home. every 2 weeks ladarnav comes and cleans the home, she a friend. has had [facility] in past. has support from 6 kids. will cont following as needed for dc needs. possible going for video swallow today.
[2020-05-31 19:54] VITALS: BP 134/80
--- NOTE | 2020-05-31 20:11 | NUR ---
PT ASSESSMENT COMPLETED. PT IMPULSIVE AT TIMES. FALL PRECAUTIONS IN PLACE. UP TO THE BATHROOM WITH ASST/GAIT/WALKER. UNSTEADY AT TIMES. VOIDING MODERATE AMOUNT OF YELLOW URINE. WILL CONTINUE TO MONITOR FREQUENTLY.
[2020-06-01 08:00] VITALS: BP 134/64
--- NOTE | 2020-06-01 09:54 | NUR ---
ASSUMED CARE AT 0700. PATIENT IS ALERT AND ORIENTEDX4. PATIENT HAS RIGHT SIDED WEAKNESS. LUNGS ARE CLEAR. ABD IS SOFT WITH BSX4. PATIENT IS UP WITH GAIT BELT AND WALKER TO THE BATHROOM TO VOID AMBE COLORED URINE. UP IN THE CHAIR FOR MEALS. FALL AND SAFETY PROTOCOLS IN PLACE. DENIES PAIN. CONTINUES TO PROGRESS SLOWLY TOWARDS D/C GOALS. WILL CONTINUE TO MONITER.
--- NOTE | 2020-06-01 16:40 | NUR ---
TEAM CONFERENCE: D/C TARGET DATE IS 06/07. PT HAS A WALKER. PT WILL NEED HELP MANAGING MEDICATION, AND ALREADY HAS HELP MANAGING FINANCES. PT DTRANGELO, PRESENT AT BEDSIDE STATED, "THERE IS ENOUGH OF US TO HANDLE THAT." PER ANGELO, PT HAS ONE OF HER CHILDREN W/HER FROM AROUND 4-7 BUT SHE IS HOME ALONE DURING THE DAY, WHEN THEY ALL WORK, AND OVERNIGHT. CM ASKED IF PT WOULD BE ABLE TO STAY W/ONE OF HER CHILDREN TEMP AT D/C. ANGELO DOES NOT THINK THAT IS A POSSIBILITY. CM EDU OF C/G RESOURCES/OPTIONS AND EDU ON SNF, ANGELO EXPRESSED CONCERNS ABOUT PT RTRN'G HOME ALONE. D/C W/HH: PT, OT, RN, ST. PT HAS NO HH PREFERENCE AT THIS TIME.
[2020-06-01 19:31] VITALS: BP 143/72
--- NOTE | 2020-06-01 21:44 | NUR ---
ASSUMED CARE OF PT AT 1915. PT IS A&OX4. IS ON ROOM AIR. IS STABLE. DENIES PAIN AT THIS TIME. HAS SCATTERED BRUISING IN UPPER EXTREMITIES. SKIN TEAR ON LFA HEALING & SKIN INTACT. HAS PACEMAKER LEFT CHEST. EDEMA IN BILAT LES. IS UP MOD I IN ROOM. HOURLY ROUNDING CONTINUED THIS SHIFT. LABS & VTIALS REVIEWED. PT IS CURRENTLY ASLEEP. CALL LIGHT WITHIN REACH. IS ABLE TO TURN SELF IN BED. WILL CONTINUE TO MONITOR.
[2020-06-02 08:00] VITALS: BP 113/67
--- NOTE | 2020-06-02 08:53 | NUR ---
ASSUMED CARE AT 0700. PATIENT IS ALERT AND ORIENTED X4. PATIENT SEN'S, MOLD PULLER ARE EQUAL. LUNGS ARE CLEAR AND DEMINISHED. ABD IS SOFT WITH BSX4. PATIENT HAS RASH ON HER UPPER BACK. WILL HAVE TRISTON, PARTNER ALLIANCE MANAGER TAKE A LOOK ON ROUNDS. UP IN THE CHAIR FOR MEALS. FALL AND SAFETY PROTOCOLS IN PLACE. UP WITH SBA WITH WALKER AND GAIT BELT. DENIES ANY PAIN . CONTINUES TO PROGRESS TOWARDS D/C GOALS. WILL CONTINUE TO MONITER.
--- NOTE | 2020-06-02 09:40 | NUR ---
DISCHARGE PLANNING: PER THIS AM'S PROGRESS NOTE FROM DR. CLEMENTS: "PLAN IS FOR DC ON SUNDAY. FAMILY WILL NOT BE ABLE TO STAY WITH HER THEY ALL WORK. SKILLED OPTIONS TO BE ASSESSED." NOTED THAT DR. CLEMENTS ALSO ENTERED AN ORDER FOR CASE MANAGEMENT TO "PLEASE ASSIST PT/FAMILY WITH SNF OPTIONS, PLAN IS FOR D/C ON SUNDAY."
--- NOTE | 2020-06-02 12:00 | NUR ---
Followup calls placed to son/dpoa Taj and Dtr/dpoa Winnie. Taj indicates that they are still discussing option for home with hh and more supervision or having pt go to SNF at [facility] for some addtional rehab/possible ltc there. They are torn and will f/u with cm tomorrow to determine dc plan. Anticipated dc date Sunday06/07/20. Referral sent to [facility] [place] per the dc cyber ops planner and junior copywriter spoke with Belkis in admissions. They can accept her Sunday for SNF stay and possible ltc transition with her spouse if family desires.
[2020-06-02 19:26] VITALS: BP 143/66
--- NOTE | 2020-06-02 22:06 | NUR ---
PT ASSESSMENT COMPLETED AND VSS. MEDS GIVEN ORDERED AND WELL TOLERATED. PRN SLEEP MEDICATION HELPFUL. UP TO THE BATHROOM WITH ASST/GAIT/WALKER. UNSTEADY AT TIMES. PT ABLE TO PULL UP AND DOWN HER OWN PANTS AND UNDERWEAR. SHE NEEDED HELP PULLING HER SHIRT OVER HER HEAD. SLEEPING WELL AT TIME. FALL PRECAUTIONS IN PLACE. WILL CONTINUE TO MONITOR FREQUENTLY.
[2020-06-03 08:15] VITALS: BP 122/68
--- NOTE | 2020-06-03 17:20 | NUR ---
ASSUMED CARE OF PT AT 0700. PT IS A&OX4 AND VITAL SIGNS ARE STABLE. PT DENIES PAIN AND PARTICIPATED IN SCHEDULED THERAPIES. RASH TO BACK NOTED AND ORDERED CREAM APPLIED TO SITE. FAMILY AT THE BEDSIDE THIS EVENING. PLANS FOR D/C TOMORROW. FALL PRECAUTIONS IN PLACE AND NURSING WILL CONTINUE TO MONITOR.
[2020-06-03 19:22] VITALS: BP 139/64
--- NOTE | 2020-06-04 01:18 | NUR ---
PT ALERT AND ORIENTED X 4. AMB TO BR WITH WALKER AND ASSIST X 1. PT TOOK HS MEDS IN APPLESAUCE WITHOUT DIFFICULTY. PT DENIES PAIN OR DISCOMFORT. BED ALARM ON FOR SAFETY. PT APPEARS TO BE SLEEPING ON HOURLY ROUNDS.
[2020-06-04 07:15] VITALS: BP 147/69
[2020-06-04] MEDS ORDERED: TYLENOL325 MG PO (07:51)
[2020-06-04] MEDS ORDERED: HYDROCORTISONE30 G9 TOP (07:51)
[2020-06-04] MEDS ORDERED: VOLTAREN GEL 1100 G2 TOP (07:51)
[2020-06-04] MEDS ORDERED: MELATONIN5 M1 PO (07:51)
[2020-06-04] MEDS ORDERED: COZAAR 50 MG TA50 M1 PO (07:51)
--- NOTE | 2020-06-04 11:46 | NUR ---
PT DISCHARGING TODAY TO [facility] FAXED DC ORDERS/SUMMARY TO FACILITY SPOKE WITH DAVID IN ADM SHE RECEIVED ORDERS AND ARRANGED TRANSPORT BY [facility] FOR 1130 TODAY. SPOKE WITH PT'S DTR (ANGELO) SHE WAS AWARE OF PT DC TODAY AND IN AGREEMENT OF DISCHARGE PLAN. UNIT NOTIFIED AND CHART COPY BY US. RN TO CALL REPORT.
--- NOTE | 2020-06-04 13:51 | NUR ---
ASSUMED CARE OF PT AT 0700. PT IS A&OX4 AND VITAL SIGNS ARE STABLE. PT DENIES PAIN. ORDERS FOR DISCHARGE TODAY AND TRANSPORT TO FACILITY ARRANGED FOR 1130. CALLED FACILITY AND GAVE REPORT TO CHARGE NURSE PRIOR TO DISCHARGE. REVIEWED DISCHARGE PACKET WITH PATIENT INCLUDING F/U APPOINTMENTS, MEDICATIONS, DISCHARGE INSTRUCTIONS AND EDUCATION. TRANSPORT ARRIVED AT 113, PT WAS ASSISTED WITH REMOVAL OF BELONGINGS AND ASSISTED TO TRANSPORT VAN BY NURSING STAFF. CHART COPY AND DISCHARGE PACKET SENT WITH PATIENT.
--- NOTE | 2020-06-04 15:47 | NUR ---
DISCHARGE NOTE: SW reviewed chart. Pt with orders to discharge to [facility] today. meeting planner coordinated and notified family. No additional SW needs identiifed at this time, but is available to assist should needs arise.
== END 2020-06-04 11:33 | DRG 91 ==
PROVIDERS: Nurse Practitioner Family; ADMIT Physical Medicine & Rehabilitation; ATTEND Physical Medicine & Rehabilitation
DX: G92 Toxic encephalopathy (principal); I21.3 ST elevation (STEMI) myocardial infarction of unspecified site; N12 Tubulo-interstitial nephritis, not specified as acute or chronic; R53.81 Other malaise; R91.1 Solitary pulmonary nodule; I49.5 Sick sinus syndrome; B96.20 Unspecified Escherichia coli [E. coli] as the cause of diseases classified elsewhere; I73.9 Peripheral vascular disease, unspecified; D69.6 Thrombocytopenia, unspecified; G70.9 Myoneural disorder, unspecified; Z90.710 Acquired absence of both cervix and uterus; Z95.0 Presence of cardiac pacemaker; Z87.442 Personal history of urinary calculi; Z95.5 Presence of coronary angioplasty implant and graft; Z79.899 Other long term (current) drug therapy; Z20.828 Contact with and (suspected) exposure to other viral communicable diseases; Z86.73 Personal history of transient ischemic attack (TIA), and cerebral infarction without residual deficits; Z90.49 Acquired absence of other specified parts of digestive tract
CPT/HCPCS: 10112

== ENCOUNTER 2020-09-17 09:30 | Emergency (ER) | payer OTHER, MEDICARE ==
[~2020-09-17] VITALS: Ht 165.1 cm; Wt 81.7 kg
[~2020-09-17 09:30] MED LIST changes: +HYDROCORTISONE30 G9 TOP; +MELATONIN5 M1 PO; +SERTRALINE HCL50 MG PO; +TYLENOL325 MG PO; +VOLTAREN GEL 1100 G2 TOP
[2020-09-17 09:57] LABS: ABSOLUTE NEUTROPHILS 10.8 thou/uL (1.4-8.2); BASOPHILS 0.3 % (0.0-2.0); EOSINOPHILS 0.1 % (0.0-3.0); HEMATOCRIT 33.3 % (37.0-47.0); HEMOGLOBIN 10.2 gm/dL (12.0-15.0); MCH 25.6 pg (26.0-34.0); MCHC 30.8 g/dL (28.0-37.0); MCV 83.2 fL (80.0-100.0); MONOCYTES 7.8 % (1.0-8.0); PLATELET COUNT 186 thou/uL (150-400); POLYS 86.8 % (36.0-66.0); RDW 18.1 % (10.5-14.5); WBC 12.4 thou/uL (4.0-11.0)
[2020-09-17 10:10] LABS: ANION GAP 7 mmol/L (7-16); BUN 18 mg/dL (7-18); CALCIUM 10.9 mg/dL (8.5-10.1); CHLORIDE 105 mmol/L (98-107); CO2 34 mmol/L (21-32); CREATININE 1.1 mg/dL (0.6-1.0); GLUCOSE 132 mg/dL (74-106); POTASSIUM 3.2 mmol/L (3.5-5.1); SODIUM 146 mmol/L (136-145)
[2020-09-17 10:13] LABS: ALBUMIN 3.6 g/dL (3.4-5.0); SGOT 21 U/L (15-37); SGPT 15 U/L (14-59); TOTAL BILIRUBIN 1.6 mg/dL (0.2-1.0); TOTAL PROTEIN 6.3 g/dL (6.4-8.2); TROPONIN-I <0.06 ng/mL (<0.06)
[2020-09-17 10:25] LABS: ANISOCYTOSIS 2+; HYPOCHROMASIA 1+; MACROCYTES 1+; MICROCYTES 1+; PLATELET ESTIMATE NORMAL; POLYCHROMASIA OCCASIONAL
[2020-09-17 10:26] LABS: OVALOCYTES OCCASIONAL; POIKILOCYTOSIS SLIGHT
[2020-09-17 11:41] LABS: URINE BILIRUBIN NEGATIVE (Negative); URINE BLOOD TRACE (Negative); URINE CLARITY CLEAR; URINE COLOR YELLOW; URINE GLUCOSE-RANDOM* NEGATIVE (Negative); URINE KETONES NEGATIVE (Negative); URINE PROTEIN (DIPSTICK) NEGATIVE (Negative); URINE UROBILINOGEN 0.2 E.U./dl (0.2-1.0)
[2020-09-17 11:45] LABS: URINE LEUKOCYTES-REFLEX 3+ (Negative); URINE NITRITE-REFLEX POSITIVE (Negative)
[2020-09-17 11:53] LABS: CASTS None Seen /LPF (None Seen); SQUAMOUS 0-3 Few /LPF (0-3); WBC CLUMPS Few (None Seen)
[2020-09-17 11:54] LABS: CRYSTALS None Seen /LPF (None Seen); MUCUS 0-3 Light strn/LPF (None Seen); URINE RBC 0-2 Rare /HPF (0-2)
[2020-09-17] MEDS ORDERED: KEFLEX500 M1 PO (12:10)
[2020-09-17 14:46] VITALS: BP 176/96
--- NOTE | 2020-09-20 07:15 | EKG ---
[facility] [place] [address] ELECTROCARDIOGRAM REPORT Name: HOLLIE BLANKENSHIP [id number]: 09/17/20 Attend Phys: Discharge: 09/17/20 Date of : 35 Report #: [id number] [facility] ED Test Date: 2020-09-17 Test Time: 09:39:04 Pat Name: HOLLIE BLANKENSHIP Department: Room: Gender: F Desktop Support Manager: ROGER : 1935 Requested By: Cleveland Carrasco Order Number: [id number] MD: Jim Burkett Measurements Intervals [place] Rate: 74 P: ME: QRS: 32 QRSD: 95 T: -90 QT: 402 QTc: 446 Interpretive Statements Afib/flut and V-paced complexes No further rhythm analysis attempted due to paced rhythm Repol abnrm suggests ischemia, anterolateral Compared to ECG 05/26/2020 18:50:26 Possible ischemia now present Sinus rhythm no longer present Atrial premature complex(es) no longer present Electronically Signed On 09-20-2020 7:15:36 CDT by Jim Burkett [email or web address] <ELECTRONICALLY SIGNED> By: Jim Burkett MD, FACC 09/20/20 0715 [id number] [id number] Jim Burkett MD, [facility] /EPI
== END 2020-09-17 14:46 | disposition short-term general hospital (02) ==
LOC: ER 09:30
PROVIDERS: Emergency Medicine
DX: Z04.3 Encounter for examination and observation following other accident (principal); Z90.49 Acquired absence of other specified parts of digestive tract; Z90.710 Acquired absence of both cervix and uterus; Z95.0 Presence of cardiac pacemaker; Z87.891 Personal history of nicotine dependence; Z79.82 Long term (current) use of aspirin; Z79.01 Long term (current) use of anticoagulants; Z79.899 Other long term (current) drug therapy; W18.39XA Other fall on same level, initial encounter; Y93.89 Activity, other specified; Y92.89 Other specified places as the place of occurrence of the external cause; Y99.8 Other external cause status

== ENCOUNTER → 2020-11-01 | Outpatient (CLI) | payer OTHER, MEDICARE ==
[~2020-11-01] MED LIST changes: +KEFLEX500 M1 PO
== END ==
LOC: SJCVC 14:24
PROVIDERS: ATTEND Internal Medicine
DX: R94.31 Abnormal electrocardiogram [ECG] [EKG] (principal); I49.5 Sick sinus syndrome; I48.0 Paroxysmal atrial fibrillation; E78.5 Hyperlipidemia, unspecified; I10 Essential (primary) hypertension; G47.33 Obstructive sleep apnea (adult) (pediatric); E66.9 Obesity, unspecified; F41.9 Anxiety disorder, unspecified; Z95.0 Presence of cardiac pacemaker; Z86.73 Personal history of transient ischemic attack (TIA), and cerebral infarction without residual deficits; Z79.82 Long term (current) use of aspirin; Z79.899 Other long term (current) drug therapy; Z87.891 Personal history of nicotine dependence; Z72.89 Other problems related to lifestyle

== ENCOUNTER → 2021-05-04 | Outpatient (CLI) | payer OTHER, MEDICARE | LOC: SJCVC 14:16 | PROVIDERS: ATTEND Internal Medicine | DX: R94.31 Abnormal electrocardiogram [ECG] [EKG] (principal); I49.5 Sick sinus syndrome; I48.21 Permanent atrial fibrillation; I10 Essential (primary) hypertension; E78.5 Hyperlipidemia, unspecified; G47.33 Obstructive sleep apnea (adult) (pediatric); E66.9 Obesity, unspecified; Z95.0 Presence of cardiac pacemaker; Z87.891 Personal history of nicotine dependence; Z72.89 Other problems related to lifestyle; Z79.82 Long term (current) use of aspirin; Z79.899 Other long term (current) drug therapy; Z82.49 Family history of ischemic heart disease and other diseases of the circulatory system ==